=== PATIENT | male | born 1960 | race Caucasian/White ===

== ENCOUNTER 2020-06-03 18:02 | Inpatient (IN) | payer MEDICAID ==
[~2020-06-03] VITALS: Ht 177.8 cm; Wt 103.9 kg
--- NOTE | 2020-06-03 18:52 | NUR ---
PT STATES RUQ ABD PAIN SINCE THIS AM, STATES "SHARP." PT REFUSED PAIN MEDICATION RIGHT NOW WEHN OFFERED, STATES PAIN IS DECREASED CURRENTLY. IV STARTED PER ORDERS, PT AWAITING CT. WILL FOLLOW ORDERS.
[2020-06-03] MEDS ORDERED: SODIUM CHLORIDE 0.9% 1,000ML IVBOLUS ONE (19:00)
[2020-06-03] MEDS ORDERED: HYDROmorphone 2 MG/ML, 1ML IVPush PRN (19:00)
[2020-06-03] MEDS ORDERED: SODIUM CHLORIDE FLUSH 10ML SYR IVF ONE (19:00)
[2020-06-03 19:09] LABS: BASOPHILS # (AUTO) 0.04 x10^3/uL (0-0.1); BASOPHILS % (AUTO) 0 % (0-1); EOSINOPHILS % (AUTO) 3 % (1-7); LYMPHOCYTES # (AUTO) 2.37 x10^3/uL (1-3.4); LYMPHOCYTES % (AUTO) 22 % (22-44); MD NO; MEAN CORPUSCULAR HEMOGLOBIN 30.4 pg (27.5-34.5); MEAN PLATELET VOLUME 7.9 fL (7.4-10.4); MONOCYTES # (AUTO) 1.08 x10^3/uL (0.2-0.8); MONOCYTES % (AUTO) 10 % (2-9); NEUTROPHILS # (AUTO) 6.88 x10^3/uL (1.8-6.8); NEUTROPHILS % (AUTO) 65 % (42-75); PLATELET COUNT 236 x10^3/uL (130-400); RED BLOOD COUNT 4.77 x10^6/uL (4.38-5.82); RED CELL DISTRIBUTION WIDTH 13.6 % (9.4-14.8)
--- NOTE | 2020-06-03 19:19 | NUR ---
URINE COLLECTED, SENT TO LAB. PT STATES PAIN LEVEL CONTROLLED, DENIES NEED FOR PAIN MEDICATIONS. CONT TO MONITOR.
[2020-06-03 19:21] LABS: ALANINE AMINOTRANSFERASE 25 U/L (12-78); ALBUMIN 3.5 g/dL (3.4-5.0); ANION GAP 6 mmol/L (5-15); CALCIUM 8.6 mg/dL (8.5-10.1); CHLORIDE 107 mmol/L (98-107); CREATININE 1.21 mg/dL (0.7-1.3)
[2020-06-03 19:23] LABS: ALKALINE PHOSPHATASE 96 U/L (45-117); BILIRUBIN,TOTAL 0.4 mg/dL (0.2-1.0)
[2020-06-03 19:27] LABS: MICROSCOPIC NOT IND
--- NOTE | 2020-06-03 20:15 | NUR ---
RECEIVED REPORT FROM ALMA MCGRATH. ASSUMING CARE AT THIS TIME.
--- NOTE | 2020-06-03 20:17 | NUR ---
ALL RESULTS ARE BACK AT THIS TIME. CHART UP FOR RECHECK.
--- NOTE | 2020-06-03 20:18 | NUR ---
REPORT GIVEN TO SOPHIA MCGRATH.
--- NOTE | 2020-06-03 20:49 | NUR ---
PT TO BE ADMITTED
--- NOTE | 2020-06-03 21:04 | NUR ---
HOSPITALIST AT BEDSIDE.
--- NOTE | 2020-06-03 21:13 | NUR ---
REPORT GIVEN TO COSMO MCGRATH.
[2020-06-03] MEDS ORDERED: JENUVIA (21:25)
[2020-06-03] MEDS ORDERED: ASPI81TA45 PO (21:25)
[2020-06-03] MEDS ORDERED: METF500T17 PO (21:25)
[2020-06-03] MEDS ORDERED: ATORVASTATIN (21:25)
[2020-06-03] MEDS ORDERED: GABA300C PO (21:25)
[2020-06-03] MEDS ORDERED: INSU100I34 SC (21:25)
[2020-06-03] MEDS ORDERED: LISINOPRIL (21:25)
[2020-06-03] MEDS ORDERED: hydrALAzine 20 MG/ML, 1ML IVPush PRN (21:30)
[2020-06-03] MEDS ORDERED: DEXTROSE 4 GM TAB.CHEW PO PRN (21:30)
[2020-06-03] MEDS ORDERED: PROMETHAZINE 25 MG/ML, 1ML IM PRN (21:30)
[2020-06-03] MEDS ORDERED: hydrALAzine 20 MG/ML, 1ML IV PRN (21:30)
[2020-06-03] MEDS ORDERED: ONDANSETRON 2MG/ML, 2ML IVPush PRN (21:30)
[2020-06-03] MEDS ORDERED: morphine SULFATE 10 MG/ML, 1ML IVPush PRN (21:30)
[2020-06-03] MEDS ORDERED: ACETAMINOPHEN 325 MG TABLET PO PRN (21:30)
[2020-06-03] MEDS ORDERED: POLYETHYLENE GLYCOL 17 GM PACKET PO PRN (21:30)
[2020-06-03] MEDS ORDERED: GLUCAGON 1 MG IM PRN (21:30)
[2020-06-03] MEDS ORDERED: DEXTROSE 50%, 50ML SYRINGE IVPush PRN (21:30)
[2020-06-03] MEDS ORDERED: DOCUSATE 100 MG CAPSULE PO PRN (21:30)
[2020-06-03] MEDS ORDERED: ONDANSETRON ODT 4 MG PO PRN (21:30)
[2020-06-03] MEDS: LACTATED RINGERS 1,000 ML IV SCH (21:58)
[2020-06-03] MEDS: SODIUM CHLORIDE FLUSH 10ML SYR IVF SCH (21:59)
[2020-06-03 22:06] VITALS: BP 147/90
[2020-06-03 22:07] LABS: FREE T4 (FREE THYROXINE) 1.12 ng/dL (0.76-1.46)
[2020-06-03] MEDS: OXYcodone IR 5MG TABLET PO PRN (22:18)
[2020-06-03] MEDS ORDERED: OMNIPAQUE 350 MG/ML, 100ML BOTTLE ONE (22:30)
[2020-06-03] MEDS: INSULIN LISPRO 100 UNITS/ML, PEN SQ-INSULIN SCH (22:58)
[2020-06-04 01:23] VITALS: BP 131/82
[2020-06-04] MEDS: OXYcodone IR 5MG TABLET PO PRN ×3 (02:41→11:35)
[2020-06-04] MEDS: LACTATED RINGERS 1,000 ML IV SCH ×3 (02:42→13:54)
[2020-06-04] MEDS: INSULIN LISPRO 100 UNITS/ML, PEN SQ-INSULIN SCH ×3 (03:00→11:00)
[2020-06-04 05:45] LABS: BASOPHILS # (AUTO) 0.05 x10^3/uL (0-0.1); BASOPHILS % (AUTO) 1 % (0-1); EOSINOPHILS # (AUTO) 0.33 x10^3/uL (0-0.4); EOSINOPHILS % (AUTO) 3 % (1-7); LYMPHOCYTES # (AUTO) 2.45 x10^3/uL (1-3.4); LYMPHOCYTES % (AUTO) 25 % (22-44); MD NO; MEAN CORPUSCULAR HEMOGLOBIN 30.5 pg (27.5-34.5); MEAN CORPUSCULAR HGB CONC 33.3 g/dL (33.2-36.2); MEAN PLATELET VOLUME 7.9 fL (7.4-10.4); MONOCYTES # (AUTO) 1.24 x10^3/uL (0.2-0.8); MONOCYTES % (AUTO) 13 % (2-9); NEUTROPHILS # (AUTO) 5.62 x10^3/uL (1.8-6.8); NEUTROPHILS % (AUTO) 58 % (42-75); PLATELET COUNT 214 x10^3/uL (130-400); RED BLOOD COUNT 4.49 x10^6/uL (4.38-5.82); RED CELL DISTRIBUTION WIDTH 13.5 % (9.4-14.8)
[2020-06-04 05:51] LABS: CHLORIDE 110 mmol/L (98-107)
[2020-06-04 05:59] LABS: ALANINE AMINOTRANSFERASE 22 U/L (12-78); ALBUMIN 3.1 g/dL (3.4-5.0); ALKALINE PHOSPHATASE 88 U/L (45-117); ANION GAP 5 mmol/L (5-15); BILIRUBIN,TOTAL 0.6 mg/dL (0.2-1.0); CALCIUM 8.4 mg/dL (8.5-10.1); CREATININE 1.01 mg/dL (0.7-1.3); TOTAL PROTEIN 6.3 g/dL (6.4-8.2)
[2020-06-04 06:53] VITALS: BP 129/83
[2020-06-04] MEDS: GABAPENTIN 300 MG CAPSULE PO SCH ×2 (07:32→15:49)
[2020-06-04] MEDS: SODIUM CHLORIDE FLUSH 10ML SYR IVF SCH (07:38)
[2020-06-04] MEDS ORDERED: ASPIRIN 81 MG TABLET EC PO SCH (09:00)
[2020-06-04 11:38] LABS: C-REACTIVE PROTEIN, QUANT 0.88 mg/dL (0.02-0.49)
[2020-06-04 12:03] LABS: HCT (SEDRATE) 41.1 % (39.2-51.8)
[2020-06-04 13:14] VITALS: BP 149/89
== END 2020-06-04 16:20 | disposition home or self-care (01) | DRG 440 ==
LOC: ED 20:55 → EDIP 21:00 → 3N 21:37 → DCLOUNGE 06-04 16:17
PROVIDERS: ADMIT Internal Medicine; ATTEND Hospitalist
DX: K85.90 Acute pancreatitis without necrosis or infection, unspecified (principal); E11.9 Type 2 diabetes mellitus without complications; E78.00 Pure hypercholesterolemia, unspecified; E78.5 Hyperlipidemia, unspecified; F14.90 Cocaine use, unspecified, uncomplicated; F17.200 Nicotine dependence, unspecified, uncomplicated; I10 Essential (primary) hypertension; I25.10 Atherosclerotic heart disease of native coronary artery without angina pectoris; N20.0 Calculus of kidney; D72.829 Elevated white blood cell count, unspecified; G51.0 Bell's palsy; Z79.4 Long term (current) use of insulin; Z79.899 Other long term (current) drug therapy; Z79.84 Long term (current) use of oral hypoglycemic drugs; Z79.82 Long term (current) use of aspirin; Z88.1 Allergy status to other antibiotic agents
CPT/HCPCS: 36415; 74177; 74181; 80053; 81003; 82150; 82962; 83036; 83605; 83690; 83735; 84439; 84443; 85025; 85651; 86140; 96360; 99291; G0378; Q9967; J7030; J7120